=== PATIENT | male | born 1975 | race Hispanic/Latino ===

== ENCOUNTER 2021-06-29 08:26 | Day surgery (SDC) | payer OTHER ==
[~2021-06-29 08:26] MED LIST: BETIMOL0.5 % OP; CLARITIN-D1 TA2 PO; LATANOPROST0.005 % OP; XALATAN 0.005%2.5 ML OU
[2021-06-29] MEDS ORDERED: TORADOL PO (11:42)
[2021-06-29 13:18] VITALS: BP 132/63
== END 2021-06-29 12:45 | DRG 352 ==
LOC: ORM 08:26
PROVIDERS: ATTEND Surgery
PROC: 0YUA4JZ Supplement Bilateral Inguinal Region with Synthetic Substitute, Percutaneous Endoscopic Approach (ICD-10-PCS; principal; 2021-06-29)
DX: K40.20 Bilateral inguinal hernia, without obstruction or gangrene, not specified as recurrent (principal); D17.6 Benign lipomatous neoplasm of spermatic cord
CPT/HCPCS: C1781; J0131; J2710